=== PATIENT | male | born 1930 | race Caucasian/White ===

== ENCOUNTER 2016-08-25 15:15 | Observation (INO) | payer MEDICARE ==
[2016-08-25 16:22] LABS: ABSOLUTE NEUTROPHIL COUNT 6.3 K/mm3 (1.8-7.7); BASO % 0.5 % (0.2-1.0); EOS % 0.2 % (0.9-2.9); HEMOGLOBIN 14.7 gm/l (14.0-18.0); IMM NEUT% 0.2 % (0-1); LYMPH # 1.2 (1.0-4.8); LYMPH % 15.1 % (15-45); MEAN CELL VOLUME 92.2 fl (80.0-94.0); MEAN CORPUSCULAR HEMOGLOBIN 30.1 pg (27.0-31.0); MEAN CORPUSCULAR HGB CONC 32.7 g/dl (33.0-37.0); MEAN PLATELET VOLUME 9.2 fl (7.4-10.4); MONO # 0.6 (0.0-0.8); MONO % 7.2 % (4-12); NEUT % 76.8 % (43-75); PLATELET COUNT 222 K/mm3 (130-400); RED CELL DISTRIBUTION WIDTH 12.1 % (11.5-14.5)
[2016-08-25] MEDS ORDERED: ASPIRIN CHEWTAB 81 MG TABLET ONE (16:26)
[2016-08-25] MEDS ORDERED: SODIUM CHLORIDE 0.9% 500 ML ONE (16:26)
[2016-08-25 16:38] LABS: ALB/GLOB RATIO 1.1 (>1.0); ALBUMIN 4.1 gm/dL (3.5-5.7)
[2016-08-25 16:42] LABS: TROPONIN I 0.05 ng/ml (0.0-0.06)
[2016-08-25 16:45] LABS: CKMB ISOENZYME 2.9 ng/ml (0.6-6.3)
--- NOTE | 2016-08-25 17:12 | CT ---
Exam: CT head without contrast COMPARISON: 09/22/2013 INDICATION: Headache and weakness. TECHNIQUE: CT examination of the head was obtained without contrast. FINDINGS: There is no acute intracranial hemorrhage. There is no abnormal intra or extra-axial fluid collection. Cortical rowland-white matter differentiation is maintained and there is no mass effect or midline shift. There is a severe global cerebral atrophy and ventriculomegaly, not significantly changed since prior exam. Mild periventricular white matter hypodensities are similar. The visualized paranasal sinuses and mastoid air cells are well aerated. IMPRESSION: Stable exam since 09/22/2013 without acute intracranial abnormality or significant interval change. Report was uploaded to the EMR at 1708 hours 08/25/2016.
[2016-08-25 17:30] LABS: SPECIFIC GRAVITY 1.015 (1.001-1.030); URINE BILIRUBIN NEGATIVE (NEGATIVE); URINE BLOOD NEGATIVE (NEGATIVE); URINE GLUCOSE (UA) NEGATIVE (NEGATIVE); URINE LEUKOCYTE ESTERASE NEGATIVE (NEGATIVE); URINE NITRITE NEGATIVE (NEGATIVE); URINE PROTEIN TRACE (NEGATIVE); URINE UROBILINOGEN NORMAL (0-1 mg/dl)
[2016-08-25 17:31] LABS: URINE APPEARANCE CLEAR; URINE COLOR YELLOW
--- NOTE | 2016-08-25 17:49 | RAD ---
EXAMINATION : CHEST-AP BEDSIDE HISTORY: Headache and weakness. COMPARISONS: Prior exam dated 01/30/2011 FINDINGS: Borderline cardiomegaly with aortic ectasia similar to the prior examination. Prominent bronchovascular markings emanating from the hilar distributions are similar. There is very slight effacement of the right cardiophrenic sulcus. There is no visible pneumothorax. The remainder the osseous structures are unremarkable. Sternotomy wires are noted. IMPRESSION: Cardiomegaly with moderate pulmonary vascular congestion. There slight effacement of the right cardiophrenic sulcus. This may reflect atelectasis or a small right pleural effusion.
[2016-08-25] MEDS ORDERED: D5 1/2NS with 20 mEq KCL 1,000 ML IV SCH (19:00)
[2016-08-25] MEDS ORDERED: BISACODYL 10 MG SUP PR PRN (19:00)
[2016-08-25] MEDS ORDERED: ACETAMINOPHEN 325 MG TABLET PO PRN (19:00)
[2016-08-25] MEDS ORDERED: MAGNESIUM HYDROXIDE 30 ML UDCUP PO PRN (19:00)
[2016-08-25] MEDS ORDERED: BLISTEX LIPSTICK 1 EACH TP PRN (19:00)
[2016-08-25] MEDS ORDERED: MENTHOL/CETYLPYRD 1 EACH LOZENGE PO PRN (19:00)
[2016-08-25] MEDS ORDERED: BISACODYL 5 MG TABLET.EC PO PRN (19:00)
[2016-08-25] MEDS ORDERED: CALCIUM CARBONATE 500 MG TAB.CHEW PO PRN (19:00)
[2016-08-25] MEDS ORDERED: SODIUM CHLORIDE 0.9% 100 ML IV PRN (19:00)
[2016-08-25 19:23] VITALS: BMI 23.6
[2016-08-25] MEDS: DOCUSATE SODIUM 100 MG CAPSULE PO SCH (20:39)
[2016-08-25] MEDS ORDERED: ASPIRIN (UNCOATED) 325 MG TABLET PO ONE (20:54)
[2016-08-25] MEDS: LOSARTAN POTASSIUM 50 MG TABLET PO SCH (21:18)
[2016-08-26] MEDS: ACETAMINOPHEN 325 MG TABLET PO PRN ×2 (01:07→22:32)
[2016-08-26 06:14] LABS: ABSOLUTE NEUTROPHIL COUNT 5.6 K/mm3 (1.8-7.7); BASO # 0.1 K/mm3 (0.0-0.2); BASO % 0.6 % (0.2-1.0); EOS # 0.1 (0.0-0.5); EOS % 1.5 % (0.9-2.9); HEMATOCRIT 41.7 % (32.0-52.0); HEMOGLOBIN 13.2 gm/l (14.0-18.0); IMM NEUT% 0.2 % (0-1); LYMPH # 2.5 (1.0-4.8); MEAN CELL VOLUME 93.7 fl (80.0-94.0); MEAN CORPUSCULAR HEMOGLOBIN 29.7 pg (27.0-31.0); MEAN CORPUSCULAR HGB CONC 31.7 g/dl (33.0-37.0); MEAN PLATELET VOLUME 9.5 fl (7.4-10.4); MONO # 0.8 (0.0-0.8); MONO % 8.9 % (4-12); NEUT % 61.8 % (43-75); PLATELET COUNT 201 K/mm3 (130-400); RED CELL DISTRIBUTION WIDTH 12.3 % (11.5-14.5)
[2016-08-26 06:28] LABS: CALCIUM 9.1 mg/dL (8.6-10.3)
--- NOTE | 2016-08-26 07:31 | HP ---
Jareth Ladd [id number] DATE OF ADMISSION: 08/25/2016 CHIEF COMPLAINT: Weakness and headache. HISTORY OF PRESENT ILLNESS: The patient is a 85-year-old male with a history of progressive senile dementia, hypertension, coronary artery disease, and benign prostatic hypertrophy who was brought to the [facility] Emergency Department by ambulance because of increased weakness noted today. He was unable to get out of bed on his own. He has been complaining of headaches as well in the last 24 hours or so in the forehead and bitemporal areas. He generally refuses to take his medication, but his has been able to get him to take some Tylenol for the headaches. She notes that he has been refusing his prescription medications for some time now. Workup in the emergency department failed to identify the cause for the weakness, but he was referred to the hospitalist service due to concerns that it was unsafe to send him home. He lives at home with his as his only caregiver and she uses a walker and is unable to provide even one person assist. He is tonight requiring two people to assist him to get to the bathroom. The patient is not able to give any history or provide a review of systems. REVIEW OF SYSTEMS: His reports she checked him for fever and did not identify one in the last week. He has had no upper respiratory symptoms or cough. No complaints of chest pain. No indications of shortness of breath. He has had no diarrhea. He did have an episode of vomiting last , but none since. He seems to have a good appetite. He has not complained of any pain, but has had the headache. There has been no history of fainting, blackouts, or seizures. No falls. No urinary changes. No change in bowel habits. PAST MEDICAL HISTORY: Significant for benign prostatic hypertrophy. He was hospitalized in 2010 for hematuria which required transfer to [place] for cautery. 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 He has had a history of carotid stenosis and has had progressive senile dementia as mentioned above. He has also had an in inguinal hernia on the left side, but is not a surgical candidate for this. PAST SURGICAL HISTORY: Significant of a left carotid endarterectomy in 2005, laparoscopic cholecystectomy in 2009. CURRENT HOME MEDICATIONS: Are really none. He has been prescribed a number of medications includin. Losartan. 2. Lasix. 3. Carvedilol. 4. Pravastatin. 5. Aspirin, but his reports she has been unable to get him to take any of his medications for quite some time. ALLERGIES: REPORTED TO DOXAZOSIN, FLOMAX, AND STOMACH UPSET ASSOCIATED WITH NAPROXEN. FAMILY HISTORY: Significant for a father who had myocardial infarction at the age of 56. His mother of complications of dementia. SOCIAL HISTORY: He is . He lives with his . She is his sole caregiver. They have two children, one is living and lives in [place]. He is a retired senior validation engineer. There is no history of tobacco, alcohol, or illicit drug use. The patient's primary care provider is Dr. Mayfield. PHYSICAL EXAMINATION: VITAL SIGNS: Show a temperature of 97.9, pulse 98, blood pressure 193/107, respirations 18, oxygen saturations are 98% on room air, body mass index is 23.7, weight is 74.8 kg. GENERAL: This is a elderly male in no acute distress. HEENT: Moist pink oral mucosa. Pupils equal, round, and reactive to light. Extraocular movements are intact. No oral lesions are present. LUNGS: Clear to auscultation bilaterally. CARDIOVASCULAR: Reveals a regular rate and rhythm without a murmur. ABDOMEN: Soft, nontender, nondistended with positive bowel sounds. He has a reducible left inguinal hernia. EXTREMITIES: Show 1+ pitting edema in both lower extremities to the knees. His toenails are thickened and have not been trimmed in quite some time. SKIN: Extremely dirty with incrusted dirt and dried skin on his chest and on his feet and it appears he has not been bathed in months. NEUROLOGIC: Nonfocal. He does verbalize and is able to feed himself without assistance. LABORATORY STUDIES: Included a CBC with a white count of 8.2, hemoglobin of 14.7, and a platelet count of 222,000. Lactate is 2.0. Chemistry profile shows a sodium of 137, potassium 4.2, carbon dioxide 25, BUN 21, creatinine 1.3, glucose 97. Liver functions tests are normal. Total CPK is 133, CK-MB is 2.9, troponin I is 0.05. B-type natiuretic peptide is 291. Urinalysis is unremarkable. DIAGNOSTICS: Chest x-ray shows cardiomegaly with some pulmonary vascular congestion, no infiltrates. CT of the brain shows no acute abnormality either. ASSESSMENT AND PLAN: Patient has generalized weakness, multifactorial, mostly related to progressive senile dementia. He has coronary artery disease which appears to be stable. He has chronic essential hypertension which is untreated. He has some evidence of possible diastolic congestive heart failure on his x-ray, but is asymptomatic at this time. He is noncompliant with his medications. He has history of benign prostatic hypertrophy currently stable. He is placed under observation. Will get physical therapy and occupational therapy to evaluate and treat the patient in the morning. Will get care management to assist in placement options or care giving assistance. Anticipate less than 24 hour stay. I am going to try and get him to take antihypertensive therapy and Lasix in the morning. Further treatment and recommendations will depend on his hospital course. JOB: [id number] CC: Dr. Mayfield
[2016-08-26] MEDS: LOSARTAN POTASSIUM 50 MG TABLET PO SCH (08:23)
[2016-08-26] MEDS: DOCUSATE SODIUM 100 MG CAPSULE PO SCH ×2 (08:23→22:32)
[2016-08-26] MEDS: FUROSEMIDE 40 MG TABLET PO SCH (08:23)
--- NOTE | 2016-08-26 10:17 | PDOC43 ---
- Subjective Chief Complaint: Weakness No c/o's. Sitting up in chair. Subjective: Denies Shortness of Breath, Denies Cough, Denies Chest Pain, Denies Abdominal Pain, Denies Nausea, Denies Vomiting, Denies Fever, Denies Chills - Objective Vital Signs Temperature 98.2 F 08/26/16 07:03 Pulse Rate 73 08/26/16 07:03 Respiratory Rate 18 08/26/16 08:00 Blood Pressure 128/75 08/26/16 07:03 O2 Saturation by Pulse Oximetry 96 08/26/16 07:03 Oxygen Delivery Method Room Air Oxygen Flow Rate 0 Intake and Output 08/25/16 08/26/16 08/27/16 06:59 06:59 06:59 Intake Total 350 240 Output Total 750 100 Balance -400 140 General: Cooperative, Other (Not oriented x2. NAD, calm. Appears at compromised baseline.), No Acute Distress HEENT: Atraumatic, Mucous membr. moist/pink Lungs: Clear to Auscultation Bilaterally Cardiovascular: Regular Rate and Rhythm Abdomen: Soft, Normal Bowel Sounds, Non-Distended, No Tenderness Extremities: Normal Pulses, Other (1+ edema B LE's.) Laboratory 08/26/16 05:45 08/26/16 05:45 08/25/16 08/26/16 16:05 05:45 Troponin I 0.05 0.08 H B-Natriuretic Peptide 291 H Current Medications: Current meds reviewed in EMR. - Problems: Assessment/Plan (1) Weakness Status: AcuteAssessment/Plan: Etiology primarily advancing dementia. See below. Appears at baseline this AM. Awaiting PT/OT to [facility]. (2) Dementia Qualifiers: Dementia type: unspecified type Dementia behavioral disturbance: without behavioral disturbance Qualifier Code: (F03.90) Unspecified dementia without behavioral disturbance Status: ChronicAssessment/Plan: Advanced as per clinic chart. Recent consideration of Palliative care only d/t pt refusing all meds- off all meds x months. Living situation not reasonable. refusing help at home and other interventions as per chart. Will consult SW. (3) CAD (coronary artery disease) Qualifiers: Coronary Disease-Associated Artery/Lesion type: unspecified vessel or lesion type Status: ChronicAssessment/Plan: Borderline troponin c/w demand ischemia in context of HTN and known underlying CAD. No further w/u indicated- see above. Will re-order usual meds (BB, ARB, ASA , statin, Lasix) and offer to pt. (4) HTN (hypertension) Qualifiers: Hypertension type: essential hypertension Qualifier Code: (I10) Essential (primary) hypertension Status: ChronicAssessment/Plan: As above. (5) CHF (congestive heart failure) Qualifiers: Congestive heart failure type: unspecified congestive heart failure type Congestive heart failure chronicity: unspecified congestive heart failure chronicity Qualifier Code: (I50.9) Heart failure, unspecified Status: ChronicAssessment/Plan: Presumed primarily dCHF at/near baseline. Further w/u not indicated as above. Resume usual meds as above. VTE Prophylaxis Contraindications: Drug treatment not indicated VTE Prophylaxis: Ambulation. Disposition: Unknown.
[2016-08-26] MEDS ORDERED: CARVEDILOL 25 MG TABLET PO SCH (10:30)
[2016-08-26] MEDS: ASPIRIN (ENTERIC COATED) 325 MG TABLET.EC PO SCH (12:41)
[2016-08-26] MEDS ORDERED: SODIUM CHLORIDE 0.9% 500 ML IV SCH (15:34)
[2016-08-26] MEDS ORDERED: PUMP TUBING ONE (15:35)
[2016-08-27] MEDS ORDERED: QUETIAPINE FUMARATE 25 MG TABLET PO ONE (07:11)
[2016-08-27 07:38] VITALS: BP 167/80
[2016-08-27] MEDS: FUROSEMIDE 40 MG TABLET PO SCH (09:07)
[2016-08-27] MEDS: DOCUSATE SODIUM 100 MG CAPSULE PO SCH (09:07)
[2016-08-27] MEDS: LOSARTAN POTASSIUM 50 MG TABLET PO SCH (09:07)
[2016-08-27] MEDS: ASPIRIN (ENTERIC COATED) 325 MG TABLET.EC PO SCH (09:07)
--- NOTE | 2016-08-27 12:28 | PDOC5 ---
ADMIT DATE: 08/25/16 DISCHARGE DATE: 08/27/16 ADMISSION DIAGNOSES: Generalized weakness Discharge Diagnoses: Progressive dementia CAD HTN Diastolic CHF PROCEDURES PERFORMED THIS HOSPITALIZATION: None CONSULTATIONS: None HOSPITAL COURSE: This is a 85 year old male who presented to the emergency department for increased weakness. He lives with his who has significantly decreased mobility and relies on a wheelchair. He was complaining of headaches and head CT did not reveal any abnormalities. He does not take his medications regularly. He was determined unsafe to discharge home and was observed overnight. He required 1-2 person assistance with ADL's. He worked with therapy and his medications were resumed. He is unable to provide history and his awareness of time is baseline per his . For the evidence of diastolic heart failure on chest x-ray, the patient is not in respiratory distress and not short of breath without LE edema. As he has not been taking his medications for months, and a dose of coreg resulted in him turning rowland, home medications will be discontinued upon discharge. He is to follow-up with his PCP as scheduled. With social work and care management assistance, the patient is a risk to discharge home with his due to his advancing dementia and level of ADL cares required. The has declined placing the patient in a memory care unit. A son who lives several miles from the patient will be available to offer some assistance. This is a high risk social situation with the patient requiring ADL assistance and report of guns in the home. This patient is a high risk candidate for return to the emergency department. - Exam Vital Signs Temperature 97.6 F 08/27/16 07:35 Pulse Rate 90 08/27/16 07:35 Respiratory Rate 17 08/27/16 08:00 Blood Pressure 167/80 08/27/16 07:35 O2 Saturation by Pulse Oximetry 97 08/27/16 07:35 Oxygen Delivery Method Room Air Oxygen Flow Rate 0 General: Alert, Cooperative, Other (disheveled), No Oriented x3, No Acute Distress HEENT: No Atraumatic, No PERRLA, No EOMI, No Mucous membr. moist/pink Lungs: Clear to Auscultation Bilaterally, Normal Air Movement Cardiovascular: Regular Rate and Rhythm, Normal S1, Normal S2 Abdomen: Soft, Mild Distention, No Rigid, No Tenderness, No Rebounding Extremities: No Edema, No Tenderness Neurological: Normal Speech Psych/Mental Status: Normal Affect - Results Laboratory 08/26/16 05:45 08/26/16 05:45 Laboratory Tests 08/25/16 08/26/16 16:05 05:45 Hgb 14.7 13.2 L Imaging Results: Head CT: Stable without acute intracranial abnormality CXR: cardiomeagly with moderate pulmonary vascular congestion. Sleight effacement of R cardiophrenic sulcus, may reflect atelecatasis or pleural effusion - Problems:Assessment/Plan (1) Weakness Status: AcuteAssessment/Plan: Etiology primarily advancing dementia. See below. Appears at baseline this AM. Awaiting PT/OT to [facility]. (2) Dementia Qualifiers: Dementia type: unspecified type Dementia behavioral disturbance: without behavioral disturbance Qualifier Code: (F03.90) Unspecified dementia without behavioral disturbance Status: ChronicAssessment/Plan: Advanced as per clinic chart. Recent consideration of Palliative care only d/t pt refusing all meds- off all meds x months. Living situation not reasonable. refusing help at home and other interventions as per chart. Will consult SW. (3) CAD (coronary artery disease) Qualifiers: Coronary Disease-Associated Artery/Lesion type: unspecified vessel or lesion type Status: ChronicAssessment/Plan: Borderline troponin c/w demand ischemia in context of HTN and known underlying CAD. No further w/u indicated- see above. Will re-order usual meds (BB, ARB, ASA , statin, Lasix) and offer to pt. (4) CHF (congestive heart failure) Qualifiers: Congestive heart failure type: unspecified congestive heart failure type Congestive heart failure chronicity: unspecified congestive heart failure chronicity Qualifier Code: (I50.9) Heart failure, unspecified Status: ChronicAssessment/Plan: Presumed primarily dCHF at/near baseline. Further w/u not indicated as above. Resume usual meds as above. (5) HTN (hypertension) Qualifiers: Hypertension type: essential hypertension Qualifier Code: (I10) Essential (primary) hypertension Status: ChronicAssessment/Plan: As above. - Disposition: Disposition: Unknown. - Discharge Plan Additional Instructions: Contact your primary care physician for a referral to podiatry for nail care Follow-Up: Tank Mayfield DO [Referring] - 09/10/16 10:30 am Condition: Stable Disposition: Home
[2016-08-27] MEDS: ACETAMINOPHEN 325 MG TABLET PO PRN (12:37)
== END 2016-08-27 12:45 | disposition home or self-care (01) ==
LOC: ED 15:15 → MS 17:48
PROVIDERS: ADMIT Family Medicine; ATTEND Family Medicine
DX: A52.17 General paresis (principal); I25.10 Atherosclerotic heart disease of native coronary artery without angina pectoris; I50.32 Chronic diastolic (congestive) heart failure; I11.0 Hypertensive heart disease with heart failure
CPT/HCPCS: 83605; 83690; 83880; 82150; 85025 ×2; 82550; 82553; 80048; 80053; 81003; 84484 ×2; 36415; 71010; 70450; 97161; 99284; 96360; 96361; 93005; 99285; A9270 ×18; J7040 ×2